=== PATIENT | female | born 1990 | race Two or more races ===

== ENCOUNTER 2019-12-05 16:05 | Emergency (ER) | payer SELFPAY ==
[~2019-12-05] VITALS: Ht 152.4 cm; Wt 61.0 kg
[2019-12-05 17:44] LABS: BASOPHILS % 0.7 % (0.0-2.0); EOSINOPHILS % 0.1 % (0.0-5.0); HEMATOCRIT. 42.9 % (36.0-48.0); HEMOGLOBIN. 14.4 g/dL (12.0-16.0); LYMPHOCYTES % 18.1 % (20.0-50.0); MEAN CORPUSCULAR HEMOGLOBIN 30.2 pg (28.0-32.0); MEAN CORPUSCULAR VOLUME 90.3 fL (81.0-99.0); MONOCYTES % 7.2 % (2.0-8.0); NEUTROPHILS % 73.9 % (40.0-76.0); PLATELET 160 x1000/uL (130-400); RED BLOOD CELL COUNT 4.75 mill/uL (4.2-5.4); RED CELL DISTRIBUTION WIDTH 13.6 % (11.6-14.6)
[2019-12-05 17:48] LABS: CHLORIDE 108 mEq/L (98-107)
[2019-12-05 17:54] LABS: HCG SCREEN NEGATIVE
[2019-12-05 17:55] LABS: PROTHROMBIN TIME 10.8 sec (9.6-11.0)
[2019-12-05] MEDS ORDERED: KETOROLAC 30MG/ML VIAL IV ONE (18:30)
[2019-12-05 18:55] LABS: CLARITY URINE CLEAR (CLEAR); COLOR URINE YELLOW (YELLOW); KETONES URINE TRACE (NEGATIVE); LEUKOCYTE ESTERASE URINE 1+ (NEGATIVE); NITRITE URINE NEGATIVE (NEGATIVE); OCCULT BLOOD URINE NEGATIVE (NEGATIVE); PH URINE 5.5 (4.5-8.0); PROTEIN URINE NEGATIVE (NEGATIVE); SPECIFIC GRAVITY URINE 1.027 (1.005-1.030); UROBILINOGEN URINE 0.2 E.U./dL (0.2-1.0)
[2019-12-05 19:45] VITALS: BP 118/69
== END 2019-12-05 20:03 | disposition home or self-care (01) ==
LOC: ER 16:05
DX: R10.84 Generalized abdominal pain (principal); B01.9 Varicella without complication
CPT/HCPCS: 36415; 80053; 81003; 83690; 84703; 85025; 85610; 96374; 99283; J1885